=== PATIENT | female | born 1950 | race Caucasian/White ===

== ENCOUNTER 2019-08-18 13:16 | Emergency (ER) | payer OTHER ==
[2019-08-18 14:43] LABS: Absolute Lymphocytes (CBC) 0.4 K/uL (0.7-4.9); Basophils % 0.2 % (0-1.3); Hematocrit 44.2 % (36.0-45.0); Lymphocytes % 4.2 % (15.3-44.8); MPV 8.6 fL (7.6-11.3); RBC Red Blood Cell Count 4.96 M/uL (3.86-4.86)
[2019-08-18] MEDS ORDERED: MAGNE/ALUM HYDROXD 30 ML UCUP ONE (14:51)
[2019-08-18] MEDS ORDERED: NA CHLORIDE 0.9% 1,000 ML ONE (14:52)
[2019-08-18] MEDS ORDERED: LIDOCAINE VISCOUS 2% SOLN 15 ML UDC ONE (14:52)
[2019-08-18] MEDS ORDERED: FAMOTIDINE 20 MG/2 ML VIAL IV ONE (14:52)
[2019-08-18] MEDS ORDERED: ONDANSETRON 4 MG/2 ML VIAL ONE (14:52)
[2019-08-18] MEDS ORDERED: MORPHINE 4 MG/ML SYR ONE (14:52)
[2019-08-18 15:01] LABS: Albumin 3.6 g/dL (3.4-5.0); Bilirubin Direct 0.1 mg/dL (0-0.2); Bilirubin Total 0.4 mg/dL (0.2-1.0); Protein, Total 7.1 g/dL (6.4-8.2)
[2019-08-18 15:30] LABS: Urine Blood 2+ (NEG); Urine Glucose NEGATIVE (NEG); Urine Protein TRACE (NEG); Urine Specific Gravity >1.030 (1.005-1.030)
--- NOTE | 2019-08-18 15:33 | RAD REPORT ---
EXAM DESCRIPTION: CT - Abdomen Pelvis W Contrast - 08/18/2019 3:18 pm CLINICAL HISTORY: Abdominal pain COMPARISON: none. TECHNIQUE: Computed axial tomography of the abdomen pelvis was obtained. 100 cc Isovue-300 was admin istered intravenously. Oral contrast was not requested which limits evaluation of bowel. All CT scans are performed using dose optimization technique as appropriate and may include automated exposure control or mA/KV adjustment according to patient size. FINDINGS: The liver, spleen, pancreas, adrenal and kidneys appear unremarkable. There is no evidence of diverticulitis. Fluid is present within nondilated large and small bowel. Two splenic artery aneurysms. The largest is mostly thrombosed with peripheral calcification and davy ures 19 millimeters Small hiatal hernia IMPRESSION: Splenic artery aneurysms Fluid within nondilated large and small bowel may indicate an enteritis
[2019-08-18 15:42] LABS: Blood Morphology Comment NOT SEEN (NOT SEEN); Platelet Estimate ADEQ; Urine White Blood Cell Casts OK
--- NOTE | 2019-08-18 16:03 | ER ---
Nurse's Notes [facility] Name: Argentina Potts Age: 68 yrs Sex: Female : 1950 Arrival Date: 08/18/2019 Time: 13:19 Bed 8 Private MD: Diagnosis: Upper abdominal pain, unspecified Presentation: 08/18 13:28 Presenting complaint: Patient states: sore throat, N/V that began 3 days ago. ss Transition of care: patient was not received from another setting of care. Onset of symptoms was August 15, 2019. Risk Assessment: Do you want to hurt yourself or someone else? Patient reports no desire to harm self or others. Initial Sepsis Screen: Does the patient meet any 2 criteria? HR > 90 bpm. Does the patient have a suspected source of infection? No. Patient's initial sepsis screen is negative. Care prior to arrival: None. 13:28 Method Of Arrival: Ambulatory ss 13:28 Acuity: MARIAN 3 ss Historical: - Allergies: 13:31 No Known Allergies; ss - Home Meds: 13:31 Omeprazole Oral [Active]; meloxicam oral oral [Active]; amitriptyline Oral [Active]; ss - PMHx: 13:31 GERD; ss - PSHx: 13:31 Hysterectomy; ss - Immunization history:: Adult Immunizations up to date. - Social history:: Smoking status: Patient denies any tobacco usage or history of. Patient/guardian denies using alcohol, street drugs, The patient lives with family. - Ebola Screening: : Patient denies exposure to infectious person Patient denies travel to an Ebola-affected area in the 21 days before illness onset. - Family history:: not pertinent. Screenin:00 Abuse screen: Denies threats or abuse. Denies injuries from another. Nutritional sg screening: No deficits noted. Tuberculosis screening: No symptoms or risk factors identified. Never had TB. Fall Risk None identified. Assessment: 14:00 General: Appears in no apparent distress. uncomfortable, well groomed, well developed, sg well nourished, Behavior is calm, cooperative, appropriate for age. Pain: Complains of pain in abdomen Quality of pain is described as aching. Neuro: Level of Consciousness is awake, alert, obeys commands, Oriented to person, place, time, Moves all extremities. Speech is normal, Facial symmetry appears normal. Cardiovascular: Capillary refill is brisk in bilateral fingers Patient's skin is warm and dry. Chest pain is denied. Respiratory: Airway is patent Respiratory effort is even, unlabored, Respiratory pattern is regular, symmetrical. GI: Abdomen is round non-distended, Bowel sounds present X 4 quads. Abd is soft X 4 quads Abd is non tender X 4 quads. : No signs and/or symptoms were reported regarding the genitourinary system. EENT: No signs and/or symptoms were reported regarding the EENT system. Derm: Skin is pink, warm \T\ dry. Musculoskeletal: Circulation, motion, and sensation intact. Range of motion: intact in all extremities. 16:11 Reassessment: outside lab contaced, spoke with Romeo who reports the strep to be sg negative. Vital Signs: 13:31 BP 145 / 93; Pulse 107; Resp 17; Temp 97.7(O); Pulse Ox 98% on R/A; Weight 76.2 kg; ss Height 5 ft. 5 in. (165.10 cm); Pain 3/10; 14:00 BP 134 / 77; Pulse 93; Resp 16; Pulse Ox 97% ; sv 15:00 BP 130 / 71; Pulse 110; Resp 16; Pulse Ox 99% ; sv 16:55 BP 132 / 70; Pulse 90; Resp 17; Temp 97.7; Pulse Ox 99% on R/A; sg 13:31 Body Mass Index 27.96 (76.20 kg, 165.10 cm) ED Course: 13:19 Patient arrived in ED. ds1 13:30 Triage completed. ss 13:31 Arm band placed on right wrist. ss 13:35 Marques Barker, RN is Primary Nurse. sg 13:39 Mayte Dumont MD is Attending Physician. ma2 13:43 Safety checks: Family/friend present: yes. Placed in gown. Bed in low position. Call jp3 light in reach. Side rails up X 1. Warm blanket given. Verbal reassurance given. Pulse ox on. NIBP on. 13:43 Patient maintains SpO2 saturation greater than 95% on room air. jp3 14:32 Initial lab(s) drawn, by me, sent to lab. Urine collected: clean catch specimen, clear, jp3 antoinette colored, Strep swab sent to lab. Inserted saline lock: 20 gauge antecubital area, using aseptic technique. Blood collected. 14:32 Strep Sent. jp3 15:[address] via wheelchair. sv 15:10 CBC Smear Scan Sent. sv 15:18 CT Abd/Pelvis - IV Contrast Only In Process Unspecified. EDMS 16:55 No provider procedures requiring assistance completed. IV discontinued, intact, sg bleeding controlled, No redness/swelling at site. Pressure dressing applied. Administered Medications: 15:00 Drug: NS 0.9% 1000 ml Route: IV; Rate: 1 bolus; Site: right antecubital; sv 15:01 Drug: Zofran 4 mg Route: IVP; Site: right antecubital; sv 16:00 Follow up: Response: No adverse reaction; Nausea is decreased sg 15:01 Drug: Pepcid 20 mg Route: IVP; Site: right antecubital; sv 16:00 Follow up: Response: No adverse reaction sg 15:01 Drug: GI Cocktail without - (Maalox Suspension 30 ml, Lidocaine Liquid 2 % 15 sv ml) Route: PO; 16:00 Follow up: Response: No adverse reaction sg 15:02 Drug: morphine 4 mg {Note: rass1.} Route: IVP; Site: right antecubital; sv 16:00 Follow up: Response: No adverse reaction; Pain is decreased sg Outcome: 16:03 Discharge ordered by . ma2 16:55 Discharged to home ambulatory, with family. sg 16:55 Condition: good 16:55 Discharge instructions given to patient, family, Instructed on discharge instructions, follow up and referral plans. medication usage, safety practices, Demonstrated understanding of instructions, follow-up care, medications, Prescriptions given X 1. 17:00 Patient left the ED. sg Signatures: Dispatcher [employer] [facility] Melissa Carrasco RN RN Marques Barker RN RN sg Carolina Nash ds1 Betsey Julio RN RN Mayte Dumont MD MD ma2 Pisarski, Jacob jp3 Corrections: (The following items were deleted from the chart) 15:27 14:00 GI: Abdomen is round non-distended, Bowel sounds present X 4 quads. Abd is soft X sg 4 quads Abdomen is tender to palpation in suprapubic area sg 18:13 16:55 Discharge instructions given to patient, family, Instructed on discharge sg instructions, follow up and referral plans. medication usage, safety practices, Demonstrated understanding of instructions, follow-up care, medications, Prescriptions given X 2, sg
--- NOTE | 2019-08-18 16:04 | EDPHYS ---
Physician Documentation [facility] Name: Argentina Potts Age: 68 yrs Sex: Female : 1950 Arrival Date: 08/18/2019 Time: 13:19 Bed 8 Private MD: ED Physician Mayte Dumont HPI: 08/18 14:44 This 68 yrs old Female presents to ER via Ambulatory with complaints of Abdominal Pain, ma2 Nausea/Vomiting. 14:44 The patient presents to the emergency department with nausea, abdominal pain. Onset: ma2 The symptoms/episode began/occurred gradually, 1 day(s) ago. Possible causes: unknown. Associated signs and symptoms: Pertinent positives: Pertinent negatives: anorexia, dysuria, GI bleeding, hematuria. Severity of symptoms: At their worst the symptoms were mild in the emergency department the symptoms are unchanged. The patient has not experienced similar symptoms in the past. Historical: - Allergies: 13:31 No Known Allergies; ss - Home Meds: 13:31 Omeprazole Oral [Active]; meloxicam oral oral [Active]; amitriptyline Oral [Active]; ss - PMHx: 13:31 GERD; ss - PSHx: 13:31 Hysterectomy; ss - Immunization history:: Adult Immunizations up to date. - Social history:: Smoking status: Patient denies any tobacco usage or history of. Patient/guardian denies using alcohol, street drugs, The patient lives with family. - Ebola Screening: : Patient denies exposure to infectious person Patient denies travel to an Ebola-affected area in the 21 days before illness onset. - Family history:: not pertinent. ROS: 14:44 Constitutional: Negative for fever, chills, and weight loss. ma2 14:44 All other systems are negative. Exam: 14:44 Constitutional: This is a well developed, well nourished patient who is awake, alert, ma2 and in no acute distress. ENT: red oropharynx otherwise Nares patent. No nasal discharge, no septal abnormalities noted. Tympanic membranes are normal and external auditory canals are clear. Oropharynx with no redness, swelling, or masses, exudates, or evidence of obstruction, uvula midline. Mucous membranes moist. Chest/axilla: Normal chest wall appearance and motion. Nontender with no deformity. No lesions are appreciated. Cardiovascular: Regular rate and rhythm with a normal S1 and S2. No gallops, murmurs, or rubs. Normal PMI, no JVD. No pulse deficits. Respiratory: Lungs have equal breath sounds bilaterally, clear to auscultation and percussion. No rales, rhonchi or wheezes noted. No increased work of breathing, no retractions or nasal flaring. Abdomen/GI: Soft, non-tender, with normal bowel sounds. No distension or tympany. No guarding or rebound. No evidence of tenderness throughout. Vital Signs: 13:31 BP 145 / 93; Pulse 107; Resp 17; Temp 97.7(O); Pulse Ox 98% on R/A; Weight 76.2 kg; ss Height 5 ft. 5 in. (165.10 cm); Pain 3/10; 14:00 BP 134 / 77; Pulse 93; Resp 16; Pulse Ox 97% ; sv 15:00 BP 130 / 71; Pulse 110; Resp 16; Pulse Ox 99% ; sv 16:55 BP 132 / 70; Pulse 90; Resp 17; Temp 97.7; Pulse Ox 99% on R/A; sg 13:31 Body Mass Index 27.96 (76.20 kg, 165.10 cm) ss MDM: 13:39 Patient medically screened. [facility] 14:44 Differential diagnosis: Nonspecific abd pain, gastritis, pancreatitis, viral ma2 gastroenteritis, gastroenteritis. 16:02 Data reviewed: vital signs, nurses notes. Counseling: I had a detailed discussion with ma2 the patient and/or guardian regarding: the historical points, exam findings, and any diagnostic results supporting the discharge/admit diagnosis, the presence of at least one elevated blood pressure reading (>120/80) during this emergency department visit, the need for outpatient follow up. Response to treatment: the patient's symptoms have resolved after treatment. 08/18 14:10 Order name: Basic Metabolic Panel; Complete Time: 15:04 [facility] 08/18 14:10 Order name: CBC with Diff; Complete Time: 15:43 [facility] 08/18 14:10 Order name: Creatinine for Radiology; Complete Time: 15:04 [facility] 08/18 14:10 Order name: Hepatic Function; Complete Time: 15: [facility] 08/18 14:10 Order name: Lipase; Complete Time: 15: [facility] 08/18 14:10 Order name: Strep ma2 08/18 14:10 Order name: CT Abd/Pelvis - IV Contrast Only; Complete Time: 15:43 ma2 08/18 14:47 Order name: Urine Dipstick--Ancillary (enter results); Complete Time: 15:43 bd 08/18 14:48 Order name: CBC Smear Scan; Complete Time: 15:43 EDMS 08/18 16:15 Order name: Throat Culture EDWI 08/18 14:10 Order name: IV Saline Lock; Complete Time: 14:32 ma2 08/18 14:10 Order name: Labs collected and sent; Complete Time: 14:32 ma2 08/18 14:10 Order name: Urine Dipstick-Ancillary (obtain specimen); Complete Time: 14:32 ma2 Administered Medications: 15:00 Drug: NS 0.9% 1000 ml Route: IV; Rate: 1 bolus; Site: right antecubital; sv 15:01 Drug: Zofran 4 mg Route: IVP; Site: right antecubital; sv 16:00 Follow up: Response: No adverse reaction; Nausea is decreased sg 15:01 Drug: Pepcid 20 mg Route: IVP; Site: right antecubital; sv 16:00 Follow up: Response: No adverse reaction sg 15:01 Drug: GI Cocktail without - (Maalox Suspension 30 ml, Lidocaine Liquid 2 % 15 sv ml) Route: PO; 16:00 Follow up: Response: No adverse reaction sg 15:02 Drug: morphine 4 mg {Note: rass1.} Route: IVP; Site: right antecubital; sv 16:00 Follow up: Response: No adverse reaction; Pain is decreased sg Disposition: 08/18/19 16:03 Discharged to Home. Impression: Upper abdominal pain, unspecified. - Condition is Stable. - Discharge Instructions: Abdominal Pain, Adult. - Prescriptions for Zofran 4 mg Oral Tablet - take 1 tablet by ORAL route every 12 hours As needed; 20 tablet. - Medication Reconciliation Form, Thank You Letter, Antibiotic Education, Prescription Opioid Use form. - Follow up: Private Physician; When: Tomorrow; Reason: Continuance of care. Signatures: [facility] Melissa Mas RN RN sv Gay, Steven, RN RN sg Smirch, Shelby, RN RN Lamin Dumontammad, MD MD ma2 Corrections: (The following items were deleted from the chart) 17:00 16:03 08/18/2019 16:03 Discharged to Home. Impression: Upper abdominal pain, sg unspecified. Condition is Stable. Prescriptions for Zofran 4 mg Oral Tablet - take 1 tablet by ORAL route every 12 hours As needed; 20 tablet, Pepcid 20 mg Oral Tablet - take 1 tablet by ORAL route once daily; 20 tablet. and Forms are Medication Reconciliation Form, Thank You Letter, Antibiotic Education, Prescription Opioid Use. Follow up: Private Physician; When: Tomorrow; Reason: Continuance of care. ma2
[2019-08-18 19:58] VITALS: TEMP 97.7
[2019-08-18 20:04] VITALS: BP 130/71; O2SAT 99
== END 2019-08-18 17:00 | disposition home or self-care (01) ==
LOC: ER 13:16
DX: R10.10 Upper abdominal pain, unspecified (principal); K21.9 Gastro-esophageal reflux disease without esophagitis
CPT/HCPCS: 87070; 85025; 80048; 36415; 80076; 87081; 81003; 83690; 74177; 96375; 96374; 99285; Q9967; J7030; J2405